=== PATIENT | male | born 1970 ===

== ENCOUNTER 2020-04-09 16:14 | Inpatient (IN) ==
[2020-04-09] MEDS ORDERED: Vancomycin 1,250 MG/262.5 ML IV.SOLN IVPB ONE (17:10)
[2020-04-09] MEDS ORDERED: Isovue-370 500 ML BOTTLE IVP ONE (17:10)
[2020-04-09] MEDS ORDERED: 0.9 % Sodium Chloride 1,000 ML IVC ONE (18:13)
[2020-04-09 18:18] LABS: Basophils # 0.1 K/mcL (0.0-0.2); Basophils % 0.5 %; Eosinophils # 0.1 K/mcL (0.0-0.6); Hematocrit 43.1 % (37.5-50.1); Hemoglobin 14.2 g/dL (12.9-16.9); INR 1.4; Immature Granulocytes % 0.4 % (0-4); Lymphocytes # 1.4 K/mcL (0.6-4.6); Lymphocytes % 10.2 %; Mean Corpuscular HGB Conc 32.9 g/dL (31.6-35.5); Mean Corpuscular Volume 103.1 fL (83.0-100.0); Mean Platelet Volume 9.1 fL (9.4-12.4); Monocytes # 1.1 K/mcL (0.0-1.3); Monocytes % 8.3 %; Neutrophils # 10.7 K/mcL (1.6-8.9); Platelet Count 521 K/mcL (140-400); Prothrombin Time 16.2 Seconds (9.4-12.1); Red Blood Count 4.18 M/mcL (4.19-5.50); Segmented Neutrophils % 79.6 %; White Blood Count 13.4 K/mcL (4.3-11.1)
[2020-04-09 18:33] LABS: Alanine Aminotransferase 63 Units/L (7-52); Albumin 3.4 g/dL (3.5-5.7); Albumin/Globulin Ratio 0.9 (1.1-2.2); Alkaline Phosphatase 85 Units/L (34-104); Aspartate Amino Transferase 34 Units/L (13-39); BUN/Creatinine Ratio 9 (6-26); Bilirubin,Indirect 0.4 mg/dL (0.0-1.0); Bilirubin,Total 0.4 mg/dL (0.3-1.0); Blood Urea Nitrogen 8 mg/dL (6-20); Carbon Dioxide 28 mEq/L (23-29); Chloride 99 mEq/L (98-107); Glucose 100 mg/dL (70-105); Magnesium 2.2 mg/dL (1.6-2.6); Osmolality,Calculated 276 (280-300); Phosphorous 2.7 mg/dL (2.7-4.5); Potassium 4.2 mEq/L (3.5-5.1); Sodium 134 mEq/L (136-145); Total Protein 7.4 g/dL (6.4-8.9); Troponin I < 0.03 ng/mL (< 0.04); eGFR For African Americans > 60 (> 60); eGFR For Non-African Americans > 60 (> 60)
[2020-04-09 18:47] LABS: Bilirubin,Urine Negative (Negative); Blood,Urine Negative (Negative); Clarity,Urine Clear (Clear); Color,Urine Colorless (Yellow); Glucose,Urine (UA) Normal (Normal); Ketones,Urine Negative (Negative); Leukocyte Esterase,Urine Negative (Negative); Nitrite,Urine Negative (Negative); PH,Urine 7.5 pH Units (5.0-8.0); Protein,Urine Negative (Neg-Trace); Specific Gravity,Urine 1.005 (1.010-1.025); Urobilinogen,Urine Normal (Normal)
[2020-04-09] MEDS ORDERED: Clindamycin 900 MG/50 ML 900 MG/50 ML IV.SOLN IVPB ONE (19:57)
[2020-04-09] MEDS ORDERED: Naloxone 0.4 MG/ML INJ IVP PRN (21:09)
[2020-04-10] MEDS ORDERED: *HR* LORazepam 2 MG/ML VIAL IVP PRN ×6 (03:30→13:23)
[2020-04-10] MEDS ORDERED: Thiamine (B-1) 100 MG, Folic Acid 1 MG, MVI, adult with vitamin K 10 ML in 0.9 % Sodi... IVPB SCH (04:00)
[2020-04-10] MEDS ORDERED: Vancomycin 1,250 MG/262.5 ML IV.SOLN IVPB SCH (06:00)
[2020-04-10 06:43] LABS: Hematocrit 37.5 % (37.5-50.1); Mean Corpuscular HGB Conc 33.6 g/dL (31.6-35.5); Mean Corpuscular Hemoglobin 34.5 pg (28.0-33.3); Mean Corpuscular Volume 102.7 fL (83.0-100.0); Mean Platelet Volume 8.7 fL (9.4-12.4); Platelet Count 485 K/mcL (140-400); Red Blood Count 3.65 M/mcL (4.19-5.50); Red Cell Distribution Width 12.1 % (11.5-14.5); White Blood Count 14.3 K/mcL (4.3-11.1)
[2020-04-10 06:44] LABS: Hemoglobin 12.6 g/dL (12.9-16.9)
[2020-04-10 06:45] LABS: INR 1.4; Prothrombin Time 15.9 Seconds (9.4-12.1)
[2020-04-10 07:05] LABS: BUN/Creatinine Ratio 8 (6-26); Blood Urea Nitrogen 6 mg/dL (6-20); Calcium 8.3 mg/dL (8.6-10.3); Carbon Dioxide 23 mEq/L (23-29); Chloride 100 mEq/L (98-107); Glucose 124 mg/dL (70-105); Magnesium 1.9 mg/dL (1.6-2.6); Osmolality,Calculated 273 (280-300); Potassium 3.2 mEq/L (3.5-5.1); Sodium 132 mEq/L (136-145); eGFR For African Americans > 60 (> 60); eGFR For Non-African Americans > 60 (> 60)
[2020-04-10] MEDS ORDERED: Clindamycin 900 MG/50 ML 900 MG/50 ML IV.SOLN IVPB SCH (08:00)
[2020-04-10] MEDS ORDERED: 0.9 % Sodium Chloride 1,000 ML IVC SCH ×2 (08:30→13:23)
[2020-04-10 11:00] LABS: Adenovirus Not Detected (Not Detect)
[2020-04-10 11:01] LABS: Bordetella Pertussis Not Detected (Not Detect); Chlamydophila pneumoniae Not Detected (Not Detect); Coronavirus 229E Not Detected (Not Detect); Coronavirus HKU1 Not Detected (Not Detect); Coronavirus NL63 Not Detected (Not Detect); Coronavirus OC43 Not Detected (Not Detect); Human Metapneumovirus Not Detected (Not Detect); Human Rhinovirus/Enterovirus Not Detected (Not Detect); Influenza A Subtype 2009 H1 Not Detected (Not Detect); Influenza B Not Detected (Not Detect); Mycoplasma pneumoniae Not Detected (Not Detect); Parainfluenza Virus 1 Not Detected (Not Detect); Parainfluenza Virus 2 Not Detected (Not Detect); Parainfluenza Virus 3 Not Detected (Not Detect); Parainfluenza Virus 4 Not Detected (Not Detect); Respiratory Syncytial Virus Not Detected (Not Detect); SARS-CoV-2 Not Detected (Not Detect)
[2020-04-10] MEDS ORDERED: Dexamethasone 4 MG/ML VIAL ONE (11:12)
[2020-04-10] MEDS ORDERED: Ondansetron 4 MG/2 ML VIAL ONE (11:12)
[2020-04-10] MEDS ORDERED: Lidocaine -MPF 2% 2 ML VIAL ONE (11:12)
[2020-04-10] MEDS ORDERED: *HR* FentaNYL (PF) 100 MCG/2 ML VIAL ONE ×2 (11:12→12:16)
[2020-04-10] MEDS ORDERED: *HR* Propofol 200 MG/20 ML VIAL IVP ONE (11:13)
[2020-04-10] MEDS ORDERED: *HR* Midazolam HCl 2 MG/2 ML VIAL ONE (11:13)
[2020-04-10] MEDS ORDERED: Ondansetron 4 MG/2 ML VIAL IVP ONE (11:16)
[2020-04-10] MEDS ORDERED: *HR* HYDROmorphone PF 0.5 MG/0.5 ML SYRINGE IVP PRN (11:16)
[2020-04-10] MEDS ORDERED: *HR* OxyCODONE Immed Rel 5 MG TABLET PO PRN (11:16)
[2020-04-10] MEDS ORDERED: Ketorolac 30 MG/ML VIAL ONE (12:11)
[2020-04-10] MEDS ORDERED: *HR* PHENYLEPHRINE 1,000 MCG/10 ML SYRINGE IVP ONE (12:22)
[2020-04-10] MEDS ORDERED: Ringers Solution, Lactated 1,000 ML ONE (12:51)
[2020-04-10] MEDS ORDERED: Naloxone 0.4 MG/ML INJ IVP PRN (13:23)
[2020-04-10] MEDS: Clindamycin 900 MG/50 ML 900 MG/50 ML IV.SOLN IVPB SCH ×2 (15:21→23:32)
[2020-04-10] MEDS: Thiamine (B-1) 100 MG, Folic Acid 1 MG, MVI, adult with vitamin K 10 ML in 0.9 % Sodi... IVPB SCH (17:04)
[2020-04-10] MEDS: Vancomycin 1,250 MG/262.5 ML IV.SOLN IVPB SCH (18:51)
[2020-04-11 03:40] LABS: Basophils % 0.3 %; Eosinophils # 0.1 K/mcL (0.0-0.6); Eosinophils % 0.5 %; Hematocrit 38.8 % (37.5-50.1); Hemoglobin 12.9 g/dL (12.9-16.9); Immature Granulocytes % 0.5 % (0-4); Lymphocytes # 1.7 K/mcL (0.6-4.6); Lymphocytes % 12.5 %; Mean Corpuscular HGB Conc 33.2 g/dL (31.6-35.5); Mean Corpuscular Hemoglobin 34.8 pg (28.0-33.3); Mean Corpuscular Volume 104.6 fL (83.0-100.0); Mean Platelet Volume 8.7 fL (9.4-12.4); Monocytes # 0.9 K/mcL (0.0-1.3); Monocytes % 6.7 %; Neutrophils # 10.6 K/mcL (1.6-8.9); Platelet Count 560 K/mcL (140-400); Red Blood Count 3.71 M/mcL (4.19-5.50); Red Cell Distribution Width 12.1 % (11.5-14.5); Segmented Neutrophils % 79.5 %; White Blood Count 13.3 K/mcL (4.3-11.1)
[2020-04-11 03:44] LABS: INR 1.3; Prothrombin Time 14.8 Seconds (9.4-12.1)
[2020-04-11 04:04] LABS: BUN/Creatinine Ratio 12 (6-26); Blood Urea Nitrogen 7 mg/dL (6-20); Calcium 8.6 mg/dL (8.6-10.3); Carbon Dioxide 22 mEq/L (23-29); Chloride 103 mEq/L (98-107); Glucose 138 mg/dL (70-105); Osmolality,Calculated 278 (280-300); Potassium 4.1 mEq/L (3.5-5.1); Sodium 134 mEq/L (136-145); eGFR For African Americans > 60 (> 60); eGFR For Non-African Americans > 60 (> 60)
[2020-04-11] MEDS: Vancomycin 1,250 MG/262.5 ML IV.SOLN IVPB SCH (05:58)
[2020-04-11] MEDS: Clindamycin 900 MG/50 ML 900 MG/50 ML IV.SOLN IVPB SCH ×3 (10:19→23:42)
[2020-04-11] MEDS ORDERED: *HR* HYDROmorphone (PF) 1 MG/ML SYRINGE IVP ONE (18:05)
[2020-04-11] MEDS ORDERED: Acetaminophen IV 1,000 MG/100 ML BAG IVPB ONE (18:07)
[2020-04-11] MEDS: Vancomycin 1,500 MG/265 ML IV.SOLN IVPB SCH (18:31)
[2020-04-11] MEDS: Melatonin 3 MG TABLET PO SCH (21:55)
[2020-04-11] MEDS: Thiamine (B-1) 100 MG, Folic Acid 1 MG, MVI, adult with vitamin K 10 ML in 0.9 % Sodi... IVPB SCH (21:56)
[2020-04-11] MEDS ORDERED: Sennosides 8.6 MG TABLET PO ONE (22:21)
[2020-04-12] MEDS: Vancomycin 1,500 MG/265 ML IV.SOLN IVPB SCH ×2 (05:12→16:54)
[2020-04-12 05:23] LABS: Basophils # 0.1 K/mcL (0.0-0.2); Basophils % 0.8 %; Eosinophils # 0.3 K/mcL (0.0-0.6); Eosinophils % 5.7 %; Hematocrit 39.7 % (37.5-50.1); Immature Granulocytes % 0.7 % (0-4); Lymphocytes # 1.8 K/mcL (0.6-4.6); Lymphocytes % 29.6 %; Mean Corpuscular HGB Conc 32.7 g/dL (31.6-35.5); Mean Corpuscular Hemoglobin 33.7 pg (28.0-33.3); Mean Corpuscular Volume 102.8 fL (83.0-100.0); Mean Platelet Volume 8.5 fL (9.4-12.4); Monocytes # 0.4 K/mcL (0.0-1.3); Monocytes % 7.4 %; Platelet Count 522 K/mcL (140-400); Red Blood Count 3.86 M/mcL (4.19-5.50); Segmented Neutrophils % 55.8 %
[2020-04-12 05:25] LABS: INR 1.2; Prothrombin Time 13.7 Seconds (9.4-12.1)
[2020-04-12 05:27] LABS: Neutrophils # 3.4 K/mcL (1.6-8.9)
[2020-04-12 05:42] LABS: BUN/Creatinine Ratio 12 (6-26); Blood Urea Nitrogen 9 mg/dL (6-20); Calcium 8.6 mg/dL (8.6-10.3); Carbon Dioxide 24 mEq/L (23-29); Chloride 105 mEq/L (98-107); Glucose 100 mg/dL (70-105); Osmolality,Calculated 281 (280-300); Potassium 4.2 mEq/L (3.5-5.1); Sodium 136 mEq/L (136-145); eGFR For African Americans > 60 (> 60); eGFR For Non-African Americans > 60 (> 60)
[2020-04-12] MEDS: polyethylene glycoL 3350 17 GM POWD.PACK PO PRN ×2 (06:55→11:36)
[2020-04-12] MEDS: Clindamycin 900 MG/50 ML 900 MG/50 ML IV.SOLN IVPB SCH ×3 (08:52→23:28)
[2020-04-12] MEDS: Folic Acid 1 MG TABLET PO SCH (08:52)
[2020-04-12] MEDS: Thiamine (B-1) 100 MG TABLET PO SCH (08:52)
[2020-04-12] MEDS: Melatonin 3 MG TABLET PO SCH (21:09)
[2020-04-13 05:25] LABS: Basophils # 0.1 K/mcL (0.0-0.2); Basophils % 0.8 %; Eosinophils # 0.3 K/mcL (0.0-0.6); Eosinophils % 4.7 %; Hematocrit 38.5 % (37.5-50.1); Hemoglobin 12.8 g/dL (12.9-16.9); Immature Granulocytes % 0.6 % (0-4); Lymphocytes # 1.6 K/mcL (0.6-4.6); Lymphocytes % 26.1 %; Mean Corpuscular HGB Conc 33.2 g/dL (31.6-35.5); Mean Corpuscular Hemoglobin 34.2 pg (28.0-33.3); Mean Corpuscular Volume 102.9 fL (83.0-100.0); Mean Platelet Volume 8.7 fL (9.4-12.4); Monocytes # 0.5 K/mcL (0.0-1.3); Monocytes % 8.7 %; Neutrophils # 3.7 K/mcL (1.6-8.9); Platelet Count 612 K/mcL (140-400); Red Blood Count 3.74 M/mcL (4.19-5.50); Segmented Neutrophils % 59.1 %; White Blood Count 6.2 K/mcL (4.3-11.1)
[2020-04-13 05:46] LABS: BUN/Creatinine Ratio 13 (6-26); Blood Urea Nitrogen 11 mg/dL (6-20); Calcium 8.8 mg/dL (8.6-10.3); Carbon Dioxide 25 mEq/L (23-29); Chloride 103 mEq/L (98-107); Glucose 104 mg/dL (70-105); Osmolality,Calculated 282 (280-300); Potassium 4.3 mEq/L (3.5-5.1); Sodium 136 mEq/L (136-145); eGFR For African Americans > 60 (> 60); eGFR For Non-African Americans > 60 (> 60)
[2020-04-13] MEDS: Vancomycin 1,500 MG/265 ML IV.SOLN IVPB SCH (06:13)
[2020-04-13] MEDS ORDERED: *HR* OxyCODONE/APAP 5/325 TABLET PO PRN (08:03)
[2020-04-13] MEDS ORDERED: Acetaminophen 325 MG TABLET PO PRN (08:03)
[2020-04-13] MEDS: Folic Acid 1 MG TABLET PO SCH (08:22)
[2020-04-13] MEDS: Thiamine (B-1) 100 MG TABLET PO SCH (08:22)
[2020-04-13] MEDS: *HR* OxyCODONE/APAP 10/325 TABLET PO PRN ×2 (10:12→20:55)
[2020-04-13] MEDS: Sulfamethoxazole/Trimeth DS 1 EACH TABLET PO SCH ×2 (16:01→20:55)
[2020-04-13] MEDS: Melatonin 3 MG TABLET PO SCH (20:55)
[2020-04-14] MEDS: *HR* OxyCODONE/APAP 10/325 TABLET PO PRN (02:58)
[2020-04-14 07:09] VITALS: BP 131/76
[2020-04-14 09:13] LABS: Basophils # 0.1 K/mcL (0.0-0.2); Basophils % 1.4 %; Eosinophils # 0.2 K/mcL (0.0-0.6); Eosinophils % 3.7 %; Hematocrit 41.9 % (37.5-50.1); Immature Granulocytes % 1.2 % (0-4); Lymphocytes # 1.6 K/mcL (0.6-4.6); Mean Corpuscular HGB Conc 33.4 g/dL (31.6-35.5); Mean Corpuscular Hemoglobin 34.3 pg (28.0-33.3); Mean Corpuscular Volume 102.7 fL (83.0-100.0); Mean Platelet Volume 8.3 fL (9.4-12.4); Monocytes # 0.5 K/mcL (0.0-1.3); Monocytes % 7.7 %; Platelet Count 616 K/mcL (140-400); Red Blood Count 4.08 M/mcL (4.19-5.50); Red Cell Distribution Width 11.9 % (11.5-14.5); White Blood Count 6.5 K/mcL (4.3-11.1)
[2020-04-14] MEDS: Folic Acid 1 MG TABLET PO SCH (09:16)
[2020-04-14] MEDS: Sulfamethoxazole/Trimeth DS 1 EACH TABLET PO SCH (09:16)
[2020-04-14] MEDS: Thiamine (B-1) 100 MG TABLET PO SCH (09:17)
[2020-04-14 09:32] LABS: BUN/Creatinine Ratio 12 (6-26); Blood Urea Nitrogen 10 mg/dL (6-20); Carbon Dioxide 24 mEq/L (23-29); Chloride 104 mEq/L (98-107); Glucose 99 mg/dL (70-105); Osmolality,Calculated 283 (280-300); Potassium 4.4 mEq/L (3.5-5.1); Sodium 137 mEq/L (136-145); eGFR For African Americans > 60 (> 60); eGFR For Non-African Americans > 60 (> 60)
== END 2020-04-14 11:22 | disposition home health service (06) | DRG 710 ==
LOC: EMEROOARM 16:14 → 3NENU 16:14 → SUATTDRO 20:33 → 3NENU 21:05 → SUATTDRO 04-11 15:46
PROVIDERS: ADMIT Family Medicine; ATTEND Family Medicine